=== PATIENT | female | born 1945 | race Caucasian/White ===

== ENCOUNTER 2017-02-04 09:54 | Day surgery (SDC) | payer OTHER ==
[2017-02-04] MEDS ORDERED: NS 500 ML IV 500 ML IV ONE (10:06)
[2017-02-04] MEDS ORDERED: TETRACAINE 0.5% OPHTH 1 DOSE AFFEYE ONE ×5 (10:45→14:26)
[2017-02-04] MEDS ORDERED: VIGAMOX 0.5% OPHTH 1 DOSE AFFEYE ONE ×5 (10:50→14:37)
[2017-02-04] MEDS ORDERED: PROLENSA OPHTH 1 DOSE AFFEYE ONE (11:01)
[2017-02-04] MEDS ORDERED: ALPHAGAN-P OPHTH 1 DOSE AFFEYE ONE (11:02)
[2017-02-04] MEDS ORDERED: MYDRIACIL OPHTH 1 DOSE AFFEYE ONE ×3 (11:03→11:05)
[2017-02-04] MEDS ORDERED: AK-DILATE 2.5% OPHTH 1 DOSE OP ONE ×3 (11:03→11:05)
[2017-02-04] MEDS ORDERED: CYCLOGYL 1% OPHTH 1 DOSE OP ONE ×3 (11:03→11:05)
[2017-02-04] MEDS: VERSED ONE ×3 (13:40→14:01)
[2017-02-04] MEDS ORDERED: AK-DILATE 10% OPHTH 1 DOSE AFFEYE ONE ×2 (13:49→14:02)
[2017-02-04] MEDS ORDERED: XYLOCAINE-MPF 1% IJ ONE ×2 (14:12→14:26)
[2017-02-04] MEDS ORDERED: BETADINE OPHTH SOLN 5% EACHEYE ONE (14:12)
[2017-02-04] MEDS ORDERED: DUOVISC IO ONE ×2 (14:12→14:26)
[2017-02-04] MEDS ORDERED: ADRENALINE CHL INJ IJ ONE ×2 (14:12→14:26)
[2017-02-04] MEDS ORDERED: BSS OPHTH (PLAIN) 500 ML with VANCOMYCIN HCL 500 MG VIAL 25 MG, ADRENALINE CHL INJ 1 MG IR ONE ×6 (14:14)
[2017-02-04 14:58] VITALS: BP 158/70
== END 2017-02-04 15:03 | disposition home or self-care (01) ==
LOC: SURG1 09:54
PROVIDERS: ATTEND Ophthalmology
PROC: 08RJ3JZ Replacement of Right Lens with Synthetic Substitute, Percutaneous Approach (ICD-10-PCS; principal; 2017-02-04 15:00)
PROC: 08J0XZZ Inspection of Right Eye, External Approach (ICD-10-PCS; principal; 2017-02-04 15:00)
PROC: 08DJ3ZZ Extraction of Right Lens, Percutaneous Approach (ICD-10-PCS; principal; 2017-02-04 15:00)
DX: H25.11 Age-related nuclear cataract, right eye (principal); H25.011 Cortical age-related cataract, right eye; H52.221 Regular astigmatism, right eye
CPT/HCPCS: A4217; J0170; J2250; J3370

== ENCOUNTER 2017-03-11 06:57 | Day surgery (SDC) | payer OTHER ==
[2017-03-11] MEDS ORDERED: NS 500 ML IV 500 ML IV ONE (07:23)
[2017-03-11] MEDS ORDERED: TETRACAINE 0.5% OPHTH 1 DOSE AFFEYE ONE ×5 (07:30→09:58)
[2017-03-11] MEDS ORDERED: VIGAMOX 0.5% OPHTH 1 DOSE AFFEYE ONE ×5 (07:31→10:11)
[2017-03-11] MEDS ORDERED: PROLENSA OPHTH 1 DOSE AFFEYE ONE (07:43)
[2017-03-11] MEDS ORDERED: ALPHAGAN-P OPHTH 1 DOSE AFFEYE ONE (07:44)
[2017-03-11] MEDS ORDERED: CYCLOGYL 1% OPHTH 1 DOSE OP ONE ×3 (07:45→07:49)
[2017-03-11] MEDS ORDERED: AK-DILATE 2.5% OPHTH 1 DOSE OP ONE ×3 (07:45→07:49)
[2017-03-11] MEDS ORDERED: MYDRIACIL OPHTH 1 DOSE AFFEYE ONE ×3 (07:45→07:49)
[2017-03-11] MEDS ORDERED: VERSED ONE ×2 (07:57→15:05)
[2017-03-11] MEDS ORDERED: ALCAINE or OPHTHETIC AFFEYE ONE (09:18)
[2017-03-11] MEDS ORDERED: VERSED IVP ONE (09:27)
[2017-03-11] MEDS ORDERED: ALCAINE or OPHTHETIC 1 DOSE AFFEYE ONE (09:28)
[2017-03-11] MEDS ORDERED: AK-DILATE 10% OPHTH 1 DOSE AFFEYE ONE (09:31)
[2017-03-11] MEDS ORDERED: BETADINE OPHTH SOLN 5% EACHEYE ONE (09:48)
[2017-03-11] MEDS ORDERED: BSS OPHTH (PLAIN) 500 ML with VANCOMYCIN HCL 500 MG VIAL 25 MG, ADRENALINE CHL INJ 1 MG IR ONE ×6 (09:52)
[2017-03-11] MEDS ORDERED: ADRENALINE CHL INJ IJ ONE ×2 (09:52→09:58)
[2017-03-11] MEDS ORDERED: DUOVISC IO ONE ×2 (09:52→09:58)
[2017-03-11] MEDS ORDERED: XYLOCAINE-MPF 1% IJ ONE ×2 (09:52→09:58)
[2017-03-11 10:34] VITALS: BP 158/68
== END 2017-03-11 10:40 | disposition home or self-care (01) ==
LOC: SURG1 06:57
PROVIDERS: ATTEND Ophthalmology
PROC: 08DJ3ZZ Extraction of Right Lens, Percutaneous Approach (ICD-10-PCS; principal; 2017-03-11 09:45)
PROC: 08RJ3JZ Replacement of Right Lens with Synthetic Substitute, Percutaneous Approach (ICD-10-PCS; principal; 2017-03-11 09:45)
DX: H25.11 Age-related nuclear cataract, right eye (principal); H25.011 Cortical age-related cataract, right eye; H52.221 Regular astigmatism, right eye
CPT/HCPCS: 99100; A4217; J0170; J2250; J3370